=== PATIENT | male | born 1960 | race Caucasian/White ===

== ENCOUNTER 2016-10-01 03:24 | Emergency (ER) | payer SELFPAY ==
[2016-10-01 04:18] LABS: BASOPHIL % 0.5 % (0-2)
[2016-10-01 04:19] LABS: PLATELET COUNT 120 x10^3mcL (130-400)
[2016-10-01 04:26] LABS: CALCIUM 8.2 mg/dL (8.5-10.1); CARBON DIOXIDE 27.2 mmol/L (21-32); CHLORIDE SERUM 110 mmol/L (98-107); GFR1 > 60 mL/min; GLUCOSE SERUM 112 mg/dL (74-106); POTASSIUM SERUM 3.6 mmol/L (3.5-5.1); SODIUM SERUM 144 mmol/L (136-145)
[2016-10-01 04:30] LABS: ALKALINE PHOSPHATASE 64 U/L (46-116); ALT/SGPT 36 U/L (16-63); AST/SGOT 24 U/L (15-37); BILIRUBIN TOTAL 0.96 mg/dL (0.20-1.00); TOTAL PROTEIN, SERUM 6.5 g/dL (6.4-8.2)
[2016-10-01 04:35] LABS: ALBUMIN 3.2 g/dL (3.4-5.0)
[2016-10-01 04:48] LABS: CK-MB 1.3 ng/mL (0-3.6)
[2016-10-01 05:58] VITALS: BP 131/65
== END 2016-10-01 05:58 | disposition home or self-care (01) ==
LOC: ED 03:24
PROVIDERS: Emergency Medicine
DX: R56.9 Unspecified convulsions (principal); R07.89 Other chest pain; R11.10 Vomiting, unspecified; Z79.899 Other long term (current) drug therapy
CPT/HCPCS: 36415; G0480; Q0092